=== PATIENT | female | born 1955 | race African-American/Black ===

== ENCOUNTER 2021-06-23 09:55 | Emergency (ER) | payer BC, MEDICARE ==
[~2021-06-23] VITALS: Ht 170.2 cm; Wt 61.0 kg
[2021-06-23] MEDS ORDERED: CYCLOBENZAPRINE 10MG TABLET PO ONE (10:45)
[2021-06-23] MEDS ORDERED: CYCL5TAB MT (10:46)
[2021-06-23 11:41] VITALS: BP 128/86
== END 2021-06-23 11:44 | disposition home or self-care (01) ==
LOC: ER 10:21
DX: M25.511 Pain in right shoulder (principal)
CPT/HCPCS: 71045; 99283